=== PATIENT | female | born 1950 | race African-American/Black ===

== ENCOUNTER → 2018-12-25 | Outpatient (CLI) | payer OTHER ==
[~2018-12-25] VITALS: Ht 185.4 cm; Wt 116.1 kg
[~2018-12-25] MED LIST: AMARYL4 MG PO; AMLODIPINE BESY10 MG PO; ASA81BEC PO; ATORVASTATIN CA80 MG PO; AUGMENTIN 875875 MG PO; LACTINEX; METFORMIN HCL1000 MG PO; METOPROLOL TART25 MG PO; NORCO 5-325 TA1 EACH PO; PLAVIX 75 MG TA75 M1 PO; SSD CREAM 1% 5050 GM TOP; TELMISARTAN-HC1 EAC1 PO; TRAMADOL 50 MG50 MG PO; TRULICITY0.75 MG/0. SUBQ; VALSARTAN-HCTZ1 EAC3 PO
[2018-12-25 07:00] LABS: HEMATOCRIT 44.4 % (37.0-47.0); HEMOGLOBIN 14.7 gm/dL (12.0-15.0); MCH 28.3 pg (26.0-34.0); MCHC 33.2 g/dL (28.0-37.0); MCV 85.1 fL (80.0-100.0); RBC 5.21 mil/uL (4.20-5.00); WBC 8.9 thou/uL (4.0-11.0)
[2018-12-25 07:12] VITALS: BP 146/69
--- NOTE | 2018-12-25 08:08 | EKG ---
[place] [address] [facility] [place] [address] ELECTROCARDIOGRAM REPORT Name: MARIELY ZAMORA Room #: REG [facility]#: [id number] Admission: 12/25/18 Attend Phys: Xavier Garg MD, Discharge: Date of : 54 Report #: [id number] THIS REPORT FOR: //name// [facility] Test Date: 2018-12-25 Test Time: 07:25:53 Pat Name: MARIELY ZAMORA Department: Room: Gender: F [employer]: Lliibeth PAULSON : 1950 Requested By: Xavier Garg Order Number: [id number] MD: Ren August Measurements Intervals [place] Rate: 82 P: 61 UT: 177 QRS: -18 QRSD: 115 T: 46 QT: 398 QTc: 465 Interpretive Statements Sinus rhythm No significant abnormality Compared to ECG 06/26/2015 16:36:10 Ventricular premature complex(es) no longer present Electronically Signed On 12-25-2018 8:08:23 [employer] by Ren August [email or web address] <ELECTRONICALLY SIGNED> By: Ren August MD, [facility] 12/25/18 0808 4 4 Ren August MD, [facility] /EPI
--- NOTE | 2018-12-25 13:02 | CATHLAB ---
[facility] [place] [address] INVASIVE PROCEDURE REPORT Name: MARIELY ZAMORA [id number] Admission: 12/25/18 Attend Phys: Xavier Garg, Discharge: Date of : 54 Report #: [id number] THIS REPORT FOR: //name// APPROVED REPORT Study performed: 12/25/2018 07:46:46 Patient Details Patient Status: Out-Patient Room #: The patient is a 68 year-old female Event Personnel Xavier Garg Staff Anesthetist, Robert Kate RN, Jo Ann Vaz RN RN, Kelly Atkinson RTR Scrub, Yossi Vogt Monitor, John Nath RTR Scrub Procedures Performed Right and Left Heart Cath w/or w/o Coronarie [id number] [facility] Aortogram Abdominal Peripheral Angio [id number] Indication Chest pain Procedure Narrative The Right Groin^ was infiltrated with 1% Lidocaine subcutaneous anesthesia. A PINNACLE 6FR Sheath #[id number] sheath was inserted into the RFA^. Coronary angiography was performed using coronary diagnostic catheters. The right coronary system was accessed and visualized with a JR4 catheter. The left coronary system was accessed and visualized with a JL4 catheter. The left ventricle was accessed and visualized with a PIGTAIL catheter. Left ventriculogram was performed in 30 degree projection. An aortogram of the abdominal aorta was performed. Closure device was deployed with a 6 Fr MYNXGRIP 6/7F #[id number]. The patient tolerated the procedure well and there were no complications associated with the procedure. There was no hematoma. Intraoperative Conscious Sedation Sedation start time: 8.28 Case end Time: 9.08 Fentanyl 100 mcg Versed 2 mg Fluoro Time: 2.39 minutes Dose: DAP 5347.00 cGycm2 627 mGy Contrast Type and Amount: Omnipaque 150 ml [facility] [place] [address] INVASIVE PROCEDURE REPORT Name: MARIELY ZAMORA Room #: [facility]#: [id number] Admission: 12/25/18 Attend Phys: Xavier Garg, Discharge: Date of : 54 Report #: [id number] Hemodynamics The right atrial mean pressure is 18 mmHg. The right ventricular pressure is 26/6 mmHg. The pulmonary artery pressure is 33/14 mmHg with a mean of 24 mmHg. The mean pulmonary capillary wedge pressure is 15 mmHg. The aortic pressure is 155/69 mmHg with a mean of 107 mmHg. The left ventricular pressure is 150/7 mmHg with a mean of mmHg. The left ventricular end diastolic pressure is 21 mmHg. The cardiac output using thermo method is 7.03 L/min. The cardiac index using thermo method is 2.95 L/min/m2. Conclusion #1 normal left ventricular size and subtle small segment of inferior wall hypo-ejection fraction is normal 60% #2 abdominal aortography mildly tortuous and mildly calcified abdominal aorta no aneurysm. Single bilateral renal arteries appear to be mildly disease. #3 long left main free of disease giving rise to LAD and circumflex # 4 LAD with proximal eccentric 60-70% lesion just off the left main and moderate 50% distal to this prior to a higher stent. With well preserved distal vessel #5 circumflex OM moderate disease 1 large OM system eccentric 50-60% proximal lesion will follow. #6 there is a diagonal occlusion this was jailed by the stent at placement in 2013 collaterally filled. #7 moderate disease in the mid dominant right coronary artery 60-70% calcified with preserved distal vessel and then a posterior lateral branch which has a 70-75% but relatively small distribution #8 successful right heart catheterization with hemodynamics above. Recommendations and plan: Continue aggressive risk factor modification there is no indication for coronary intervention. No significant progression these moderately diseased vessels will follow the proximal LAD circumflex and RCA lesions. Currently asymptomatic. Right heart catheterization pulmonary hypertension are nonexistent. <ELECTRONICALLY SIGNED> By: Xavier Garg MD, FACC 12/25/18 1302 1302 1302 Xavier Garg MD, FACC /INF
== END | disposition home or self-care (01) ==
LOC: CATH 06:19
PROVIDERS: Internal Medicine Cardiovascular Disease
DX: R07.9 Chest pain, unspecified (principal); I25.10 Atherosclerotic heart disease of native coronary artery without angina pectoris; Q25.46 Tortuous aortic arch; I70.1 Atherosclerosis of renal artery; I73.9 Peripheral vascular disease, unspecified; I10 Essential (primary) hypertension; E11.40 Type 2 diabetes mellitus with diabetic neuropathy, unspecified; E78.5 Hyperlipidemia, unspecified; M10.9 Gout, unspecified; I25.2 Old myocardial infarction; E66.09 Other obesity due to excess calories; F17.210 Nicotine dependence, cigarettes, uncomplicated; Z98.890 Other specified postprocedural states; Z79.899 Other long term (current) drug therapy; Z82.49 Family history of ischemic heart disease and other diseases of the circulatory system; Z90.49 Acquired absence of other specified parts of digestive tract; Z88.8 Allergy status to other drugs, medicaments and biological substances; Z79.82 Long term (current) use of aspirin

== ENCOUNTER → 2019-07-23 | Outpatient (CLI) | payer OTHER | LOC: SJCVCIMAG 09:40 | PROVIDERS: ATTEND Internal Medicine Cardiovascular Disease | DX: I65.23 Occlusion and stenosis of bilateral carotid arteries (principal); I70.201 Unspecified atherosclerosis of native arteries of extremities, right leg; E78.00 Pure hypercholesterolemia, unspecified; I10 Essential (primary) hypertension; E11.9 Type 2 diabetes mellitus without complications; F17.210 Nicotine dependence, cigarettes, uncomplicated; Z90.49 Acquired absence of other specified parts of digestive tract; Z79.891 Long term (current) use of opiate analgesic ==

== ENCOUNTER → 2019-09-06 | Outpatient (CLI) | payer OTHER | LOC: SJCVC 11:22 | PROVIDERS: ATTEND Internal Medicine Cardiovascular Disease | DX: R94.31 Abnormal electrocardiogram [ECG] [EKG] (principal); I25.10 Atherosclerotic heart disease of native coronary artery without angina pectoris; E11.9 Type 2 diabetes mellitus without complications; I73.9 Peripheral vascular disease, unspecified; E78.00 Pure hypercholesterolemia, unspecified; I10 Essential (primary) hypertension; F17.210 Nicotine dependence, cigarettes, uncomplicated; Z79.82 Long term (current) use of aspirin; Z79.84 Long term (current) use of oral hypoglycemic drugs; Z79.899 Other long term (current) drug therapy; Z82.49 Family history of ischemic heart disease and other diseases of the circulatory system ==

== ENCOUNTER → 2019-12-09 | Outpatient (CLI) | payer OTHER | LOC: SJCVCIMAG 07:32 | PROVIDERS: ATTEND Internal Medicine Cardiovascular Disease | DX: I25.10 Atherosclerotic heart disease of native coronary artery without angina pectoris (principal); R00.0 Tachycardia, unspecified; I49.3 Ventricular premature depolarization; I42.9 Cardiomyopathy, unspecified; E78.5 Hyperlipidemia, unspecified; I10 Essential (primary) hypertension; E11.9 Type 2 diabetes mellitus without complications; F17.200 Nicotine dependence, unspecified, uncomplicated; Z79.82 Long term (current) use of aspirin; Z79.899 Other long term (current) drug therapy ==

== ENCOUNTER → 2020-03-17 | Outpatient (CLI) | payer OTHER | LOC: SJCVCIMAG 08:46 | PROVIDERS: ATTEND Nuclear Medicine Nuclear Cardiology | DX: R94.31 Abnormal electrocardiogram [ECG] [EKG] (principal); I65.23 Occlusion and stenosis of bilateral carotid arteries; I25.10 Atherosclerotic heart disease of native coronary artery without angina pectoris; E11.51 Type 2 diabetes mellitus with diabetic peripheral angiopathy without gangrene; I77.9 Disorder of arteries and arterioles, unspecified; E78.00 Pure hypercholesterolemia, unspecified; I10 Essential (primary) hypertension; I25.5 Ischemic cardiomyopathy; E11.42 Type 2 diabetes mellitus with diabetic polyneuropathy; F17.210 Nicotine dependence, cigarettes, uncomplicated; Z72.89 Other problems related to lifestyle; Z88.8 Allergy status to other drugs, medicaments and biological substances; Z79.84 Long term (current) use of oral hypoglycemic drugs; Z79.82 Long term (current) use of aspirin; Z79.899 Other long term (current) drug therapy ==

== ENCOUNTER → 2020-10-20 | Outpatient (CLI) | payer OTHER | LOC: SJCVCIMAG 08:31 | PROVIDERS: ATTEND Nuclear Medicine Nuclear Cardiology | DX: I65.23 Occlusion and stenosis of bilateral carotid arteries (principal); I70.203 Unspecified atherosclerosis of native arteries of extremities, bilateral legs; R94.31 Abnormal electrocardiogram [ECG] [EKG]; E11.51 Type 2 diabetes mellitus with diabetic peripheral angiopathy without gangrene; I77.9 Disorder of arteries and arterioles, unspecified; I25.10 Atherosclerotic heart disease of native coronary artery without angina pectoris; I10 Essential (primary) hypertension; E78.00 Pure hypercholesterolemia, unspecified; F17.210 Nicotine dependence, cigarettes, uncomplicated; Z72.89 Other problems related to lifestyle; Z79.82 Long term (current) use of aspirin; Z79.899 Other long term (current) drug therapy; Z88.8 Allergy status to other drugs, medicaments and biological substances; Z95.820 Peripheral vascular angioplasty status with implants and grafts ==